=== PATIENT | male | born 1995 | race Caucasian/White ===

== ENCOUNTER 2016-05-16 21:19 | Emergency (ER) | payer OTHER ==
[~2016-05-16] VITALS: Ht 175.3 cm; Wt 78.6 kg
[~2016-05-16 21:19] MED LIST: ASCO500T3 PO; OMEG10007 PO; OXYC1TAB3 PO
[2016-05-16 21:26] VITALS: TEMP 37; Ht 175.3 cm; Wt 78.6 kg
[2016-05-16] MEDS ORDERED: LIDOCAINE HCL 2% VISC SOLN 20 ML UDC PO STA (21:58)
[2016-05-16] MEDS ORDERED: ALUMINUM/MAGNESIUM SUSP 30 ML UDC PO STA (21:58)
[2016-05-16] MEDS ORDERED: ONDANSETRON HOME PACK 4MG OD TAB PO ONE (22:45)
[2016-05-16 22:55] VITALS: BP 153/74; PULSE 71; O2SAT 97
--- NOTE | 2016-05-17 04:33 | EMERGENCY ROOM VISIT NOTE ---
History First contact with patient: 21:55 Chief Complaint: NAUSEA Stated Complaint: CANT HOLD DOWN FOOD, COUGH, VINCENT, NAUSEA Nursing Triage Summary: Pt reports nausea all day with one epsiode of diarrhea. Denies vomiting. History of Present Illness The patient is a 20 year old male who presents to the Emergency Room with complaints of nausea, diarrhea for the past several hours after eating wings over. Patient complains of a few episodes of vomiting and diarrhea that is nonbloody nonbilious [id number] in nature. Patient denies chest pain, dyspnea, fever, chills, black or blood in the stool or vomit. Room is sick with similar symptoms. No abdominal pain Review of Systems See HPI for pertinent positives & negatives. A total of 10 systems reviewed and were otherwise negative. Past Medical/Surgical History None Social History Smoking Status: Former Smoker Alcohol Use: occasionally Drug Use: none Marital Status: single Housing Status: lives with roommate Occupation Status: [employer] student Current/Historical Medications Scheduled Ascorbic Acid (Vitamin C), 500 MG PO DAILY Allergies Coded Allergies: Penicillins (Verified Allergy, Intermediate, childhood allergy, 02/15/16) Physical Exam Vital Signs Date Time Temp Pulse Resp B/P Pulse Ox O2 Delivery O2 Flow Rate FiO2 05/16/16 22:55 71 20 153/74 97 05/16/16 22:29 74 18 158/72 97 Room Air 05/16/16 21:26 37.0 84 20 132/68 98 Room Air Pain Rating (0-10): 0 Physical Exam VITALS: Vitals are noted on the nurse's note and reviewed by myself. Vital signs stable. GENERAL: Pleasant male, in no acute distress, nondiaphoretic, well-developed well-nourished. SKIN: The skin was without rashes, erythema, edema, or bruising. There is no tenting of the skin. Capillary reflex less than 2 seconds. HEAD: Normocephalic atraumatic. EARS: External auditory canals clear, tympanic membranes pearly murray without erythema or effusion bilaterally. EYES: Pupils equal round and reactive to light and accommodation. Conjunctivae without injection, sclerae without icterus. Extraocular movements intact. NOSE: Patent, turbinates without inflammation or discharge. MOUTH: Mucous membranes moist. Pharynx without erythema or exudate. Uvula midline. Airway patent. Tongue does not deviate. NECK: Supple without nuchal rigidity. No lymphadenopathy. No thyromegaly. Cervical spine is nontender. No JVD. HEART: Regular rate and rhythm without murmurs gallops or rubs. LUNGS: Clear to auscultation bilaterally without wheezes, rales or rhonchi. No dullness to percussion. No retractions or accessory muscle use. ABDOMEN: Positive bowel sounds x 4. Normal tympanic percussion. Soft, nontender, without masses or organomegaly. Miles sign negative. No guarding or rebound tenderness. MUSCULOSKELETAL: No muscle atrophy, erythema, or edema noted. NEURO: Patient was alert and oriented to person place and time. Normal sensation to light and sharp touch. No focal neurological deficits. Medical Decision & Procedures Medications Administered Medications (Trade) Dose Ordered Sig/Renata Route Start Time Stop Time Status Last Admin Dose Admin Lidocaine HCl (Viscous Lidocaine 2% Soln) 10 ml NOW STAT PO 05/16/16 21:58 05/16/16 22:00 DC 05/16/16 22:13 10 ML Al Hydroxide/Mg Hydroxide (Maalox Susp) 30 ml NOW STAT PO 05/16/16 21:58 05/16/16 22:00 DC 05/16/16 22:13 30 ML Ondansetron HCl (ZOFRAN ODT 4MG Home Pack) 1 homepack UD ONCE PO 05/16/16 22:45 05/16/16 22:46 DC 05/16/16 22:54 1 HOMEPACK ED Course Prior records/ancillary studies reviewed. Triage Nursing notes reviewed. The patient's history was concerning for nausea, diarrhea Differential diagnosis: Etiologies such as gastroenteritis, food borne illness, infections, appendicitis , diverticulitis, inflammatory bowel disease, obstruction, GI bleed, biliary pathology, as well as others were entertained. Physical examination findings: As above. Abdominal examination revealed no tenderness. Vital signs reviewed and revealed stable. ER treatment provided: GI cocktail On reassessment the patient felt better. Patient was tolerating p.o. intake. Diagnostics interpretation by me: Deferred This appears to be consistent with nausea and diarrhea that is now resolved. Patient felt much better. This could be related to indigestion. Patient did not have acute abdomen on exam. He was tolerating fluids. He requested to leave. He was advised to rest, stay well-hydrated and do bland diet next few days. He was advised to return to the ER immediately for abdominal pain, vomiting, fevers, vomiting, worsening signs or symptoms or as needed. By the evaluation outlined above emergent etiologies such as appendicitis, diverticulitis, obstruction, cardiac sources, mesenteric ischemia, aortic pathology, inflammatory bowel disease, renal colic, PUD, biliary pathology, UTI , as well as others were deemed relatively unlikely. The pt informed about the findings as listed above. All questions were answered and pleased with the treatment. Return instructions were outlined and the patient was discharged in stable condition. Outpatient prescription management: zofran Referral: The patient was referred to their primary care physician for follow-up in 2 to 3 days for a recheck of the current condition. Medical Decision As above Impression Primary Impression: Acute diarrhea Additional Impression: Nausea Departure Information Dispostion Home / Self-Care Condition [employer] HOME CARE DOCUMENTATION FORM, School Instructions, Return To School: 1 day IMPORTANT VISIT INFORMATION Patient Instructions [facility], ED Diet Vomiting Diarrhea Additional Instructions Zofran(odansetron) tablets 4mg: Take one and allow it to dissolve in your mouth every four to six hours as needed for nausea or vomiting. Ibuprofen(Motrin, Advil) may be used for fever or pain. Use 600mg every six hours as needed. Take with food. Avoid using more than 2400mg in a 24 hour period. Do not use 2400mg per day for more than three consecutive days without physician direction. Prolonged inappropriate use can lead to stomach upset or ulcers. (AND/OR) Acetaminophen(Tylenol) may be used for fever or pain. Use 1000mg every six hours as needed. Avoid using more than 3000mg in a 24 hour period. Rest and drink plenty of fluids as tolerated. Slow sips of water or sports drinks are recommended instead of large amounts all at once. Continue current medications. Once your stomach is settled start with a clear liquid diet (jello, soup broth, etc.) and then advance as tolerated. You should avoid full, heavy meals for about 24 hrs from the time your symptoms resolved. Return to the ER for persistent vomiting, fevers, abdominal pain, chest pains, difficulty breathing, black or bloody stools, worsening of your condition, or as needed. Follow up with your primary physician in 2-3 days for a recheck of your current condition. School Instructions Return To School: 1 day Problem Qualifiers
== END 2016-05-16 22:55 | disposition home or self-care (01) ==
LOC: C.EDB 21:20
DX: R19.7 Diarrhea, unspecified (principal); R11.2 Nausea with vomiting, unspecified; Z87.891 Personal history of nicotine dependence